=== PATIENT | male | born 1985 | race Caucasian/White ===

== ENCOUNTER 2017-02-22 09:51 | Emergency (ER) | payer OTHER ==
--- NOTE | 2017-02-22 10:28 | ED Physician Documentation ---
PD HPI CHEST PAIN - Stated complaint Stated Complaint: CHEST/LT ARM PX - Chief complaint Chief Complaint: Cardiac - History obtained from History obtained from: Patient, Friend - History of Present Illness Timing - onset: How many days ago (4) Timing - onset during: Rest Timing - duration: Days (4) Timing - details: Abrupt onset, Still present, Waxing and waning Quality: Pressure, Tightness Location: Left chest Radiation: Left upper extremity Improved by: Other (time) Worsened by: Inspiration Associated symptoms: No: Shortness of air, Diaphoresis, Nausea, Vomiting, Feeling faint / dizzy, General Weakness, Palpitations, Cough Similar symptoms before: No diagnosis Recently seen: Not recently seen - Additional information Additional information: 32-year-old active [employer] [place] male with no prior history has developed some pain in his left anterior chest with some radiation across his clavicle and down his left arm. He has had these pains on and off for the past year and a half sometimes once or twice per week and not usually lasting for any length of time. This time around he has had pain for the last 4 days he has had a consistent background pain and then periodic sharp stabbing pains. He has not had shortness of breath or diaphoresis associated with this. He has had, at times, a sensation that a deep breath makes the pain somewhat worse. He does not have local tenderness to the area. He does not have URI. Review of Systems Constitutional: denies: Fever, Chills Eyes: denies: Decreased vision Ears: denies: Ear pain Nose: denies: Congestion Throat: denies: Oral lesions / sores, Sore throat Cardiac: reports: Chest pain / pressure. denies: Palpitations, Pedal edema, Calf pain Respiratory: denies: Dyspnea, Cough, Wheezing GI: denies: Abdominal Pain, Nausea, Vomiting : denies: Dysuria, Frequency PD PAST MEDICAL HISTORY - Present Medications Home Medications: Ambulatory Orders Medication Instructions Recorded Confirmed No Known Home Medications [No 02/22/17 02/22/17 Known Home Medications] - Allergies Allergies/Adverse Reactions: Allergies Allergy/AdvReac Type Severity Reaction Status Date / Time No Known Drug Allergies Allergy Verified 02/22/17 10:06 PD ED PE NORMAL - Vitals Vital signs reviewed: Yes (normal ) - General General: No acute distress, Well developed/nourished - HEENT HEENT: Atraumatic, PERRL - Neck Neck: Supple, no meningeal sign - Cardiac Cardiac: RRR, No murmur - Respiratory Respiratory: No respiratory distress, Clear bilaterally - Abdomen Abdomen: Soft, Non tender - Back Back: No CVA TTP, No spinal TTP - Derm Derm: Normal color, Warm and dry, No rash - Extremities Extremities: No deformity, No edema - Neuro Neuro: No motor deficit, No sensory deficit - Psych Psych: Normal mood, Normal affect Results - Vitals Vitals: Vital Signs - 24 hr 02/22/17 02/22/17 02/22/17 10:01 10:21 11:30 Temperature 36.4 C L Heart Rate 52 L 62 Respiratory 19 56 H Rate Blood Pressure 121/78 111/74 Blood Pressure 124/66 [Left] O2 Saturation 99 99 02/22/17 12:33 Temperature Heart Rate 58 L Respiratory 20 Rate Blood Pressure 118/65 Blood Pressure [Left] O2 Saturation 96 Oxygen O2 Source Room air - EKG (time done) 1017 Rate: Rate (enter#) (72) Rhythm: NSR Ischemia: Normal ST segments Compare to prior EKG: Old EKG unavailable Computer interpretation: Agree with computer - Labs Labs: Laboratory Tests 02/22/17 02/22/17 02/22/17 10:30 10:30 10:30 WBC 7.4 RBC 5.00 Hgb 14.6 Hct 42.3 MCV 84.6 MCH 29.1 MCHC 34.4 RDW 13.2 Plt Count 254 MPV 6.7 L Neut # 4.6 Lymph # 2.0 [place] # 0.6 Eos # 0.2 Baso # 0.1 Absolute Nucleated RBC 0.00 Nucleated RBCs 0.0 Sodium 138 Potassium 3.9 Chloride 103 Carbon Dioxide 27 Anion Gap 8.0 BUN 14 Creatinine 1.2 Estimated GFR (MDRD) 71 L Glucose 101 H Calcium 9.6 Total Bilirubin 0.9 AST 37 ALT 93 H Alkaline Phosphatase 49 Troponin I < 0.04 Total Protein 7.9 Albumin 4.7 Globulin 3.2 Albumin/Globulin Ratio 1.5 Lipase 24 - Rads (name of study) 2 view chest Radiology: Prelim report reviewed (Impression: Normal two-view chest radiography.), EMP read indepedently, See rad report PD MEDICAL DECISION MAKING - ED course Complexity details: reviewed results, re-evaluated patient, considered differential, d/w patient, d/w family ED course: 31-year-old male otherwise well with a more than 1 year history of anterior left -sided chest pain radiating down his arm that is periodic and usually not sustained. He has never had an explanation for this and he has been investigated. Here today we have investigated as well he has no evidence of ischemia on electrocardiogram and normal troponin and blood work. The only abnormality we were able to find today was mildly elevated ALT. Departure - Departure Disposition: 01 Home, Self Care Clinical Impression: Atypical chest pain Condition: Stable Instructions: ED Chest Pain Atypical Unkn Cause Follow-Up: ROXANNE Patel [Provider Group] Discharge Date/Time: 02/22/17 13:19
[2017-02-22 10:38] LABS: BASOPHILS # (AUTO) 0.1 10^3/uL (0.0-0.1); BASOPHILS % (AUTO) 1.3 %; EOSINOPHILS # (AUTO) 0.2 10^3/uL (0.0-0.7); EOSINOPHILS % (AUTO) 2.1 %; HCT - HEMATOCRIT 42.3 % (42.0-52.0); HGB - HEMOGLOBIN 14.6 g/dL (14.0-18.0); LYMPHOCYTES % (AUTO) 26.7 %; MEAN CORPUSCULAR HEMOGLOBIN 29.1 pg (27.0-31.0); MEAN CORPUSCULAR HGB CONC 34.4 g/dL (32.0-36.0); MEAN CORPUSCULAR VOLUME 84.6 fL (80.0-94.0); MEAN PLATELET VOLUME 6.7 fL (7.4-11.4); MONOCYTES # (AUTO) 0.6 10^3/uL (0.0-1.0); MONOCYTES % (AUTO) 7.4 %; NEUTROPHILS # (AUTO) 4.6 10^3/uL (1.5-6.6); NEUTROPHILS % (AUTO) 62.5 %; RED CELL DISTRIBUTION WIDTH 13.2 % (12.0-15.0); UNCORRECTED WHITE BLOOD COUNT 7.4 x10^3/uL; WHITE BLOOD COUNT 7.4 x10^3/uL (4.8-10.8)
[2017-02-22 10:50] LABS: ALBUMIN/GLOBULIN RATIO 1.5 (1.0-2.2); BILIRUBIN,TOTAL 0.9 mg/dL (0.2-1.0); CALCIUM 9.6 mg/dL (8.5-10.3); CREATININE 1.2 mg/dL (0.6-1.2); POTASSIUM 3.9 mmol/L (3.5-5.0); TOTAL PROTEIN 7.9 g/dL (6.7-8.2)
--- NOTE | 2017-02-22 11:15 | XRAY Preliminary Report ---
Exam: XR Chest 2 View PA/LAT IMPRESSION: Normal 2-view chest radiography. [facility] SITE ID: [id number]
--- NOTE | 2017-02-22 11:18 | XRAY Report ---
EXAM: CHEST RADIOGRAPHY EXAM DATE: 02/22/2017 11:03 AM. CLINICAL HISTORY: Left chest pain . COMPARISON: None. TECHNIQUE: 2 views. FINDINGS: Lungs/Pleura: No focal opacities evident. No pleural effusion. No pneumothorax. Normal volumes. Mediastinum: Heart and mediastinal contours are unremarkable. Other: None. IMPRESSION: Normal 2-view chest radiography. [facility] Referring Provider Line: [phone] SITE ID: [id number]
[2017-02-22 12:36] VITALS: BP 118/65
== END 2017-02-22 13:19 | disposition home or self-care (01) ==
LOC: ED 09:51
DX: R07.89 Other chest pain (principal)
CPT/HCPCS: 36415; 71020; 80053; 83690; 84484; 85025; 93005; 99283; 99284

== ENCOUNTER 2018-02-28 17:08 | Emergency (ER) | payer OTHER ==
[2018-02-28] MEDS: SODIUM CHLORIDE 0.9% 1,000 ML IV ONE (18:56)
[2018-02-28] MEDS: ASPIRIN CHEW 81 MG TABLET PO STA (18:57)
[2018-02-28] MEDS: ACETAMINOPHEN 500 MG TABLET PO STA (18:57)
[2018-02-28] MEDS: ONDANSETRON 4 MG/2 ML VIAL IVP STA (18:57)
[2018-02-28 19:07] LABS: BASOPHILS # (AUTO) 0.1 10^3/uL (0.0-0.1); BASOPHILS % (AUTO) 0.9 %; EOSINOPHILS # (AUTO) 0.2 10^3/uL (0.0-0.7); EOSINOPHILS % (AUTO) 1.6 %; LYMPHOCYTES # (AUTO) 2.6 10^3/uL (1.5-3.5); LYMPHOCYTES % (AUTO) 26.1 %; MEAN CORPUSCULAR HEMOGLOBIN 29.5 pg (27.0-31.0); MEAN CORPUSCULAR HGB CONC 34.1 g/dL (32.0-36.0); MEAN CORPUSCULAR VOLUME 86.5 fL (80.0-94.0); MEAN PLATELET VOLUME 6.9 fL (7.4-11.4); MONOCYTES # (AUTO) 0.6 10^3/uL (0.0-1.0); MONOCYTES % (AUTO) 6.4 %; NEUTROPHILS # (AUTO) 6.5 10^3/uL (1.5-6.6); PLT - PLATELET COUNT 258 10^3/uL (130-450); RED BLOOD COUNT 5.07 10^6/uL (4.70-6.10); RED CELL DISTRIBUTION WIDTH 13.2 % (12.0-15.0); WHITE BLOOD COUNT 9.9 x10^3/uL (4.8-10.8)
--- NOTE | 2018-02-28 19:11 | XRAY Report ---
Procedure Date: 02/28/2018 Accession Number: [id number] / [id number] Procedure: XR - Chest 2 View X-Ray CPT Code: 04839 FULL RESULT: EXAM: CHEST RADIOGRAPHY EXAM DATE: 02/28/2018 06:40 PM. CLINICAL HISTORY: CP. COMPARISON: 02/22/2017. TECHNIQUE: 2 views. FINDINGS: Lungs/Pleura: No focal opacities evident. No pleural effusion. No pneumothorax. Normal volumes. Mediastinum: Heart and mediastinal contours are unremarkable. Other: None. IMPRESSION: Normal 2-view chest radiography. [facility]
[2018-02-28 19:27] LABS: ALBUMIN 4.8 g/dL (3.2-5.5); ALBUMIN/GLOBULIN RATIO 1.8 (1.0-2.2); BILIRUBIN,TOTAL 0.9 mg/dL (0.2-1.0); CALCIUM 9.2 mg/dL (8.5-10.3); TOTAL PROTEIN 7.4 g/dL (6.7-8.2)
--- NOTE | 2018-02-28 21:29 | ED Physician Documentation ---
History of Present Illness - Stated complaint Stated Complaint: L BICEPT PAIN - Chief complaint Chief Complaint: Ext Problem - History obtained from History obtained from: Patient - Additonal information Additional information: 32-year-old male presents to the emergency department for evaluation of left arm pain which started suddenly while driving and radiated up into his armpit. The patient denies chest pain or dyspnea on exertion. The patient did feel nauseated and dizzy and spacey. Presently, the patient's symptoms have improved. No history of similar symptoms. The patient denies any arm swelling , pain in the shoulder, elbow or wrist. Symptoms are described as moderate. No other associated symptoms. No triggering factors Review of Systems Constitutional: denies: Fever, Chills Eyes: denies: Decreased vision Ears: denies: Ear pain Nose: denies: Congestion Throat: denies: Dental pain / toothache Cardiac: denies: Chest pain / pressure, Pedal edema, Calf pain Respiratory: denies: Dyspnea GI: denies: Abdominal Pain : denies: Dysuria Musculoskeletal: denies: Neck pain Neurologic: reports: Generalized weakness. denies: Syncope, Altered mental status Psychiatric: denies: Depressed Immunocompromised: denies: Chemotherapy PD PAST MEDICAL HISTORY - Past Medical History Past Medical History: Yes Psych: Anxiety - Past Surgical History General: Appendectomy - Present Medications Home Medications: Ambulatory Orders Medication Instructions Recorded Confirmed No Known Home Medications [No 02/22/17 02/28/18 Known Home Medications] - Allergies Allergies/Adverse Reactions: Allergies Allergy/AdvReac Type Severity Reaction Status Date / Time No Known Drug Allergies Allergy Verified 02/28/18 17:18 - Social History Does the pt smoke?: No Smoking Status: Never smoker Does the pt drink ETOH?: Yes Does the pt have substance abuse?: No - Immunizations Immunizations are current?: Yes PD ED PE NORMAL - General General: Alert and oriented X 3, No acute distress - HEENT HEENT: Atraumatic, PERRL, EOMI, Ears normal - Neck Neck: Supple, no meningeal sign - Cardiac Cardiac: RRR, Strong equal pulses - Respiratory Respiratory: No respiratory distress, Clear bilaterally - Abdomen Abdomen: Normal bowel sounds, Non tender, Non distended - Derm Derm: Normal color, No rash - Extremities Extremities: No deformity, No tenderness to palpate, Normal ROM s pain, No edema , No calf tenderness / cord - Neuro Neuro: Alert and oriented X 3, Normal speech - Psych Psych: Normal mood Results - Vitals Vitals: Vital Signs - 24 hr 02/28/18 02/28/18 17:15 20:00 Temperature 36.2 C L 36.4 C L Heart Rate 62 51 L Respiratory 15 16 Rate Blood Pressure 132/75 H 118/69 O2 Saturation 99 100 Oxygen O2 Source Room air - EKG (time done) 18:17 Rate: Rate (enter#) Rhythm: NSR Intervals: Normal [place], QRS normal Ischemia: Normal ST segments Other comments: Other comments (No sinus no acute ischemic changes) - Labs Labs: Laboratory Tests 02/28/18 02/28/18 02/28/18 18:49 18:49 18:49 WBC 9.9 RBC 5.07 Hgb 15.0 Hct 43.9 MCV 86.5 MCH 29.5 MCHC 34.1 RDW 13.2 Plt Count 258 MPV 6.9 L Neut # (Auto) 6.5 Lymph # (Auto) 2.6 [place] # (Auto) 0.6 Eos # (Auto) 0.2 Baso # (Auto) 0.1 Absolute Nucleated RBC 0.00 Nucleated RBC % 0.0 Sodium 137 Potassium 3.6 Chloride 102 Carbon Dioxide 26 Anion Gap 9.0 BUN 13 Creatinine 1.0 Estimated GFR (MDRD) 87 L Glucose 96 Calcium 9.2 Magnesium 2.0 Total Bilirubin 0.9 AST 28 ALT 47 Alkaline Phosphatase 44 Troponin I < 0.04 Total Protein 7.4 Albumin 4.8 Globulin 2.6 Albumin/Globulin Ratio 1.8 Lipase 27 02/28/18 20:45 WBC RBC Hgb Hct MCV MCH MCHC RDW Plt Count MPV Neut # (Auto) Lymph # (Auto) [place] # (Auto) Eos # (Auto) Baso # (Auto) Absolute Nucleated RBC Nucleated RBC % Sodium Potassium Chloride Carbon Dioxide Anion Gap BUN Creatinine Estimated GFR (MDRD) Glucose Calcium Magnesium Total Bilirubin AST ALT Alkaline Phosphatase Troponin I < 0.04 Total Protein Albumin Globulin Albumin/Globulin Ratio Lipase - Rads (name of study) CXR Radiology: Discussed with rads (Impression: No acute disease), See rad report PD MEDICAL DECISION MAKING - ED course ED course: The patient symptoms were evaluated for a possible acute coronary syndrome, the patient's EKG and 2 heart enzymes are unremarkable. The patient has no clinical evidence of a arterial or deep vein clot on examination. The patient appears appropriate for discharge home in ongoing outpatient management. I discussed the findings with the patient who understands and agrees. I discussed warning signs and recommended returning to the emergency department immediately for worsening or concerns. The patient's well score and PERC SCORE are both 0 - Sepsis Event Vital Signs: Vital Signs - 24 hr 02/28/18 02/28/18 17:15 20:00 Temperature 36.2 C L 36.4 C L Heart Rate 62 51 L Respiratory 15 16 Rate Blood Pressure 132/75 H 118/69 O2 Saturation 99 100 Oxygen O2 Source Room air Departure - Departure Disposition: 01 Home, Self Care Clinical Impression: Pain in extremity Qualifiers: Extremity pain location: upper arm Laterality: left Qualified Code(s): M79.622 - Pain in left upper arm Condition: Good Instructions: ED Chest Pain KELLY Follow-Up: DREW RAYMOND [Primary Care Provider] - Within 3 Days Comments: These return to the emergency department for worsening symptoms or any concerns
[2018-02-28 21:34] VITALS: BP 118/79
== END 2018-02-28 21:30 | disposition home or self-care (01) ==
LOC: ED 17:08
DX: M79.622 Pain in left upper arm (principal)
CPT/HCPCS: 36415; 71046; 80053; 83690; 83735; 84484; 85025; 93005; 96361; 96374; 99283; 99284; A9270

== ENCOUNTER 2018-05-06 11:21 | Emergency (ER) | payer OTHER ==
[2018-05-06 12:21] LABS: BASOPHILS # (AUTO) 0.2 10^3/uL (0.0-0.1); BASOPHILS % (AUTO) 1.7 %; EOSINOPHILS # (AUTO) 0.2 10^3/uL (0.0-0.7); EOSINOPHILS % (AUTO) 2.3 %; HGB - HEMOGLOBIN 15.4 g/dL (14.0-18.0); LYMPHOCYTES # (AUTO) 2.2 10^3/uL (1.5-3.5); LYMPHOCYTES % (AUTO) 24.1 %; MEAN CORPUSCULAR HEMOGLOBIN 29.8 pg (27.0-31.0); MEAN CORPUSCULAR HGB CONC 35.3 g/dL (32.0-36.0); MEAN CORPUSCULAR VOLUME 84.4 fL (80.0-94.0); MEAN PLATELET VOLUME 6.6 fL (7.4-11.4); MONOCYTES # (AUTO) 0.6 10^3/uL (0.0-1.0); MONOCYTES % (AUTO) 6.9 %; NEUTROPHILS # (AUTO) 5.8 10^3/uL (1.5-6.6); PLT - PLATELET COUNT 266 10^3/uL (130-450); RED BLOOD COUNT 5.18 10^6/uL (4.70-6.10); RED CELL DISTRIBUTION WIDTH 12.8 % (12.0-15.0)
--- NOTE | 2018-05-06 12:23 | ED Physician Documentation ---
PD HPI CHEST PAIN - Stated complaint Stated Complaint: CP - Chief complaint Chief Complaint: Cardiac - History obtained from History obtained from: Patient - History of Present Illness Timing - onset: Today Timing - onset during: Light activity (sitting at desk, without any injury, bending, cough, etc. had onset of sharp pain left anterior chest. [place] that it took his breath away, but not pleuritic per se.) Timing - duration: Minutes (15-20) Timing - details: Abrupt onset, Now resolved Quality: Sharp, Pain Location: Substernal, Left chest Radiation: No: Jaw, Neck, Back Improved by: Nothing Worsened by: No: Exertion, Inspiration, Movement, Palpation Associated symptoms: Shortness of air, Feeling faint / dizzy. No: Nausea, Vomiting, General Weakness, Palpitations Similar symptoms before: No diagnosis (discrete episodes a few times in the past, years apart, without any interval chest pains. Denies any exertional chest pains nor dyspnea.) Recently seen: Not recently seen Review of Systems Constitutional: denies: Fever, Chills, Myalgias Nose: denies: Rhinorrhea / runny nose, Congestion Throat: denies: Sore throat Cardiac: reports: Chest pain / pressure. denies: Palpitations, Pedal edema, Calf pain Respiratory: reports: Dyspnea. denies: Cough, Wheezing GI: denies: Abdominal Pain, Nausea, Vomiting, Diarrhea Skin: denies: Rash, Lesions Neurologic: reports: Near syncope. denies: Generalized weakness, Focal weakness, Numbness, Syncope, Altered mental status, Headache PD PAST MEDICAL HISTORY - Past Medical History Past Medical History: No Psych: Anxiety - Past Surgical History Past Surgical History: Yes General: Appendectomy, Other - Present Medications Home Medications: Ambulatory Orders Medication Instructions Recorded Confirmed No Known Home Medications 02/22/17 02/28/18 - Allergies Allergies/Adverse Reactions: Allergies Allergy/AdvReac Type Severity Reaction Status Date / Time No Known Drug Allergies Allergy Verified 02/28/18 17:18 - Social History Does the pt smoke?: No Smoking Status: Never smoker Does the pt drink ETOH?: Yes ETOH Use: Beer Does the pt have substance abuse?: No - Immunizations Immunizations are current?: Yes - POLST Patient has POLST: No PD ED PE NORMAL - Vitals Vital signs reviewed: Yes - General General: Alert and oriented X 3, No acute distress, Well developed/nourished - HEENT HEENT: Pharynx benign - Neck Neck: Supple, no meningeal sign, No adenopathy - Cardiac Cardiac: RRR, No murmur - Respiratory Respiratory: Clear bilaterally Results - Vitals Vitals: Oxygen O2 Source Room air - EKG (time done) 11:28 Rate: Rate (enter#) (58) Rhythm: Sinus bradycardia [place]: Normal Intervals: Normal [place] QRS: Normal Ischemia: Normal ST segments. No: ST elevation c/w ischemia, ST depression Other comments: Other comments (low voltage) - Labs Labs: Laboratory Tests 05/06/18 05/06/18 05/06/18 12:13 12:13 12:13 WBC 9.0 RBC 5.18 Hgb 15.4 Hct 43.8 MCV 84.4 MCH 29.8 MCHC 35.3 RDW 12.8 Plt Count 266 MPV 6.6 L Neut # (Auto) 5.8 Lymph # (Auto) 2.2 [place] # (Auto) 0.6 Eos # (Auto) 0.2 Baso # (Auto) 0.2 H Absolute Nucleated RBC 0.00 Nucleated RBC % 0.0 Sodium 138 Potassium 3.7 Chloride 101 Carbon Dioxide 27 Anion Gap 10.0 BUN 17 Creatinine 1.0 Estimated GFR (MDRD) 87 L Glucose 89 Calcium 9.4 Total Bilirubin 0.6 AST 28 ALT 64 H Alkaline Phosphatase 44 Troponin I < 0.04 Total Protein 7.7 Albumin 4.7 Globulin 3.0 Albumin/Globulin Ratio 1.6 Lipase 39 - Rads (name of study) chest xray Radiology: Prelim report reviewed, EMP read contemporaneously PD MEDICAL DECISION MAKING - ED course Complexity details: reviewed results, considered differential, d/w patient - Sepsis Event Vital Signs: Oxygen O2 Source Room air Departure - Departure Disposition: Home, Self Care Clinical Impression: Chest pain Qualifiers: Chest pain type: precordial pain Qualified Code(s): R07.2 - Precordial pain Condition: Stable Record reviewed to determine appropriate education?: Yes Instructions: ED Chest Pain Atypical Unkn Cause Follow-Up: DREW RAYMOND [Primary Care Provider] - Comments: Unknown cause of the chest pain. Your EKG, chest x-ray, basic blood tests are normal. There is no sign of critical causes at this time. Consider possibilities of an abnormal heart rhythm briefly or esophageal spasm as things that could give a similar episode. These would not have any telltale signs or tests. Follow-up with your primary care if you get repeated episodes in the near future. Return if other symptoms develop. Discharge Date/Time: 05/06/18 14:05
[2018-05-06 12:37] LABS: ALBUMIN 4.7 g/dL (3.2-5.5); ALBUMIN/GLOBULIN RATIO 1.6 (1.0-2.2); BILIRUBIN,TOTAL 0.6 mg/dL (0.2-1.0); CALCIUM 9.4 mg/dL (8.5-10.3); TOTAL PROTEIN 7.7 g/dL (6.7-8.2)
[2018-05-06] MEDS ORDERED: MAG HYDROX/AL HYDROX/SIMETH 30 ML UDC PO STA (12:45)
[2018-05-06] MEDS ORDERED: FAMOTIDINE 20 MG TABLET PO STA (12:45)
[2018-05-06 14:05] VITALS: BP 114/81
--- NOTE | 2018-05-06 14:45 | XRAY Report ---
Reason: chest pain left sided Procedure Date: 05/06/2018 Accession Number: [id number] / [id number] Procedure: XR - Chest 2 View X-Ray CPT Code: 31478 FULL RESULT: EXAM: CHEST RADIOGRAPHY EXAM DATE: 05/06/2018 01:11 PM. CLINICAL HISTORY: Chest pain left sided. COMPARISON: CHEST 2 VIEW 02/28/2018 6:29 PM. TECHNIQUE: 2 views. FINDINGS: Lungs/Pleura: No focal opacities evident. No pleural effusion. No pneumothorax. Normal volumes. Mediastinum: Heart and mediastinal contours are unremarkable. Other: None. IMPRESSION: No acute cardiopulmonary abnormality. [facility]
== END 2018-05-06 14:05 | disposition home or self-care (01) ==
LOC: EDUNIT# → ED 11:21
DX: R07.2 Precordial pain (principal); R00.1 Bradycardia, unspecified
CPT/HCPCS: 36415; 71046; 80053; 83690; 84484; 85025; 93005; 93010; 99282; 99284; A9270

== ENCOUNTER 2018-05-29 17:42 | Emergency (ER) | payer OTHER ==
--- NOTE | 2018-05-29 20:08 | ED Physician Documentation ---
History of Present Illness - Stated complaint Stated Complaint: RAPID HEART BEAT - Chief complaint Chief Complaint: Cardiac - History obtained from History obtained from: Patient - History of Present Illness Timing: Today Pain level max: 0 Pain level now: 0 Improved by: rest Worsened by: standing - Additonal information Additional information: Patient is a 32-year-old male who states that he [place] his off at the airport today and on the way home started feeling his heart beating fast. He states he had to rack puller and stop on the side of the road. States that he has had this happen before with panic attacks. States it lasted a few hours and then resolved. He feels like his heart beats faster when he stands up and walks as well. States he only drinks 1 cup of coffee a day and denies any other stimulants. Currently is feeling better. Did not have any chest pain or shortness of breath. No recent travel. No recent surgery. Review of Systems Constitutional: denies: Fever, Chills Ears: denies: Ear pain Nose: denies: Rhinorrhea / runny nose, Congestion Throat: denies: Sore throat Cardiac: denies: Chest pain / pressure Respiratory: denies: Cough, Wheezing GI: denies: Abdominal Pain, Vomiting, Diarrhea Skin: denies: Rash Musculoskeletal: denies: Neck pain, Back pain Neurologic: denies: Focal weakness, Numbness, Headache PD PAST MEDICAL HISTORY - Past Medical History Past Medical History: No Cardiovascular: None Respiratory: None Neuro: None Endocrine/Autoimmune: None GI: None : None HEENT: None Psych: Anxiety Musculoskeletal: None Derm: None - Past Surgical History Past Surgical History: Yes General: Appendectomy, Other - Present Medications Home Medications: Ambulatory Orders Medication Instructions Recorded Confirmed No Known Home Medications 02/22/17 02/28/18 - Allergies Allergies/Adverse Reactions: Allergies Allergy/AdvReac Type Severity Reaction Status Date / Time No Known Drug Allergies Allergy Verified 02/28/18 17:18 - Social History Does the pt smoke?: No Smoking Status: Never smoker Does the pt drink ETOH?: Yes Does the pt have substance abuse?: No - Immunizations Immunizations are current?: Yes - POLST Patient has POLST: No PD ED PE NORMAL - Vitals Vital signs reviewed: Yes - General General: Alert and oriented X 3, No acute distress - HEENT HEENT: Moist mucous membranes - Neck Neck: Supple, no meningeal sign - Cardiac Cardiac: RRR, Strong equal pulses - Respiratory Respiratory: No respiratory distress, Clear bilaterally - Abdomen Abdomen: Soft, Non tender, Non distended - Back Back: No spinal TTP - Derm Derm: Warm and dry - Extremities Extremities: No edema, No calf tenderness / cord - Neuro Neuro: Alert and oriented X 3 Results - Vitals Vitals: Vital Signs - 24 hr 05/29/18 05/29/18 05/29/18 17:49 19:13 20:11 Temperature 36 C L Heart Rate 80 74 Respiratory 18 17 Rate Blood Pressure 143/86 H 131/83 H Blood Pressure 115/75 [Right] O2 Saturation 98 100 Oxygen O2 Source Room air - EKG (time done) 1747 Rate: Rate (enter#) (86) Rhythm: NSR [place]: LAD Intervals: Normal [place] QRS: Normal Ischemia: Normal ST segments PD MEDICAL DECISION MAKING - ED course Complexity details: reviewed results, re-evaluated patient, considered differential, d/w patient ED course: Patient is a 32-year-old male with palpitations earlier today. No acute findings on EKG or telemetry here. Asymptomatic here. Ambulating around the emergency department without any difficulty. We will have him follow-up with his doctor for further evaluation and care. We will have him avoid stimulants as well. No evidence of pulmonary embolus or arrhythmia at this time. Patient counseled regarding signs and symptoms for which I believe and urgent re- evaluation would be necessary. Patient with good understanding of and agreement to plan and is comfortable going home at this time This document was made in part using voice recognition software. While efforts are made to proofread this document, sound alike and grammatical errors may occur. Departure - Departure Disposition: 01 Home, Self Care Clinical Impression: Intermittent palpitations Condition: Good Instructions: ED Palpitations Follow-Up: DREW RAYMOND [Primary Care Provider] - Within 1 week Comments: The cause of your symptoms is unclear today. Follow-up with your doctor for further care. They may want to place you on a Holter monitor for your palpitations. Avoid stimulants. Return if you worsen Discharge Date/Time: 05/29/18 20:13
[2018-05-29 20:11] VITALS: BP 131/83
== END 2018-05-29 20:13 | disposition home or self-care (01) ==
LOC: ED 17:42
DX: R00.2 Palpitations (principal)
CPT/HCPCS: 93005; 99283

== ENCOUNTER 2019-06-25 12:33 | Emergency (ER) | payer OTHER ==
[2019-06-25] MEDS ORDERED: BUFFERED LIDOCAINE 10 ML SYRINGE SUBQ STA (14:16)
[2019-06-25] MEDS ORDERED: ONDANSETRON ODT 4 MG TABLET TL STA (14:45)
--- NOTE | 2019-06-25 15:13 | ED Physician Documentation ---
PD HPI UPPER EXT INJURY - Stated complaint Stated Complaint: L HAND LAC - Chief complaint Chief Complaint: Laceration - History obtained from History obtained from: Patient - History of Present Illness Location: Left, Other (base of his thumb) Where injury occurred: Home Timing - onset: Today (just prior to arrival) Timing - duration: Hours Timing - details: Abrupt onset Severity Comments: mild Improved by: Immobilization. No: Rest, Ice Worsened by: Moving, Palpating Associated symptoms: No: Weakness, Numbness, Tingling, Swelling, Discolored Contributing factors: No: Anticoagulated, Prior ortho surgery, Work related Similar symptoms before: Has not had sx before Recently seen: Not recently seen - Treatment prior to arrival Treatment prior to arrival: none - Additonal information Additional information: Pt accidentally cut his L thumb base with a kitchen knife at home Reports that his tetanus is up to date Review of Systems Ten Systems: 10 systems reviewed and negative Constitutional: denies: Fever Cardiac: reports: Reviewed and negative Respiratory: reports: Reviewed and negative GI: reports: Reviewed and negative Skin: reports: Laceration (s) Musculoskeletal: reports: Joint pain. denies: Joint swelling Neurologic: denies: Generalized weakness, Focal weakness, Numbness Endocrine: denies: Easy bruising / bleeding Immunocompromised: reports: Reviewed and negative PD PAST MEDICAL HISTORY - Past Medical History Past Medical History: No Cardiovascular: None Respiratory: None Neuro: None Endocrine/Autoimmune: None GI: None : None HEENT: None Psych: Anxiety Musculoskeletal: None Derm: None - Past Surgical History Past Surgical History: Yes General: Appendectomy, Other - Present Medications Home Medications: Ambulatory Orders Medication Instructions Recorded Confirmed No Known Home Medications 02/22/17 02/28/18 - Allergies Allergies/Adverse Reactions: Allergies Allergy/AdvReac Type Severity Reaction Status Date / Time No Known Drug Allergies Allergy Verified 02/28/18 17:18 - Social History Does the pt smoke?: No Smoking Status: Never smoker Does the pt drink ETOH?: Yes Does the pt have substance abuse?: No - Immunizations Immunizations are current?: Yes - POLST Patient has POLST: No PD ED PE NORMAL - Vitals Vital signs reviewed: Yes - General General: Alert and oriented X 3, No acute distress, Well developed/nourished - HEENT HEENT: Atraumatic, Pharynx benign - Neck Neck: Supple, no meningeal sign, No JVD - Cardiac Cardiac: RRR - Respiratory Respiratory: No respiratory distress - Abdomen Abdomen: Soft, Non tender, Non distended - Male Male : Deferred - Rectal Rectal: Deferred - Derm Derm: Normal color, Warm and dry, No rash - Extremities Extremities: No deformity, No tenderness to palpate, Normal ROM s pain, No edema, No calf tenderness / cord - Neuro Neuro: Alert and oriented X 3, No motor deficit, No sensory deficit Eye Opening: Spontaneous Motor: Obeys Commands Verbal: Oriented GCS Score: 15 - Psych Psych: Normal mood, Normal affect PD ED PE EXPANDED - Derm Derm: Laceration(s) (L base of thumb laceration, superficial, 3cm in length) - Extremities Extremities: Laceration, Motor intact, Sensory intact, Vascular intact, Tendon intact, Other (L thumb with full ROM, neurovascularly intact). No: Deformity, Tenderness, Limited ROM, Swelling, Bruising, Abrasion Results - Vitals Vitals: Vital Signs - 24 hr 06/25/19 06/25/19 06/25/19 12:37 14:48 15:24 Temperature 36.8 C 37.1 C Heart Rate 77 61 52 L Respiratory 18 15 16 Rate Blood Pressure 127/78 114/65 114/88 H O2 Saturation 97 98 99 Oxygen O2 Source Room air Procedures - Laceration (location) Finger left Length in cm: 3 Wound type: Linear, Superficial Neurovascular status: Sensory intact, Motor intact, Vascular intact Tendon involvement: Tendon intact Anesthesia: Lidocaine 1% (without epi) Wound Preparation: Irrigated copiously NS Skin layer closure: Nylon, Interrupted, Size #-0 - enter number (4), Sutures - enter # (4) Other: Patient tolerated well, Neurovascular intact, Dressing applied, Tetanus UTD, Other (patient became nauseous during the procedure, pale, had to lie flat, given zofran with complete resolution of symptoms, likely vagal response) Complexity: Simple PD MEDICAL DECISION MAKING - ED course Complexity details: re-evaluated patient, considered differential, d/w patient ED course: ddx- finger laceration, bony injury, tendon injury 33 y/o M with simple L base of thumb laceration, tendon and neurovascularly intact. Irrigated, repaired. Pt had a vagal response during the procedure, removed with elevation of legs and laying flat, given zofran for nausea. He improved and is now stable for discharge with outpt f/u Departure - Departure Disposition: 01 Home, Self Care Clinical Impression: Thumb laceration Qualifiers: Encounter type: initial encounter Damage to nail status: without damage Foreign body presence: without foreign body Laterality: left Qualified Code(s): S61.012A - Laceration without foreign body of left thumb without damage to nail, initial encounter Condition: Stable Record reviewed to determine appropriate education?: Yes Instructions: ED Laceration Hand Follow-Up: DREW RAYMOND [Primary Care Provider] - (7-10 days for suture removal) Comments: Apply bacitracin or neosporin twice a day. Keep clean with soap and water. Cover when working. If redness, swelling, discharge or fever occur return to the ED. Discharge Date/Time: 06/25/19 15:24
[2019-06-25 15:26] VITALS: BP 114/88
== END 2019-06-25 15:24 | disposition home or self-care (01) ==
LOC: ED 12:33
DX: S61.012A Laceration without foreign body of left thumb without damage to nail, initial encounter (principal); W26.0XXA Contact with knife, initial encounter; Y93.89 Activity, other specified; Y92.009 Unspecified place in unspecified non-institutional (private) residence as the place of occurrence of the external cause; R55 Syncope and collapse; R11.0 Nausea
CPT/HCPCS: 12002; 99282; 99283; Q0162